=== PATIENT | female | born 1995 | race African-American/Black ===

== ENCOUNTER 2023-08-19 11:19 | Emergency (ER) | payer MEDICAID, OTHER ==
[~2023-08-19] VITALS: Ht 172.7 cm; Wt 148.0 kg
[~2023-08-19 11:19] MED LIST: ALBUTEROL INHALER
[2023-08-19 11:28] VITALS: BP 149/93; PULSE 85; RESP 12; TEMP 98.2; O2SAT 100
[2023-08-19] MEDS ORDERED: AMOX-494 MT (12:13)
[2023-08-19] MEDS ORDERED: P20 MT (12:13)
== END 2023-08-19 12:30 | disposition home or self-care (01) ==
LOC: ER 11:19
DX: J02.0 Streptococcal pharyngitis (principal)
CPT/HCPCS: 99283

== ENCOUNTER 2023-11-03 08:35 | Emergency (ER) | payer OTHER ==
[~2023-11-03] VITALS: Ht 170.2 cm; Wt 145.0 kg
[~2023-11-03 08:35] MED LIST changes: +AMOX-494 MT; +P20 MT
[2023-11-03 08:41] VITALS: O2SAT 100
[2023-11-03] MEDS: KETOROLAC 30MG/ML VIAL IM ONE (09:13)
[2023-11-03] MEDS: DEXAMETHASONE 10 MG/ML VIAL PO ONE (09:13)
[2023-11-03] MEDS ORDERED: IBUP-2029 MT (09:34)
[2023-11-03] MEDS ORDERED: BENZ1LOZ73 MT (09:34)
[2023-11-03 09:42] VITALS: BP 125/86; PULSE 88; RESP 18; TEMP 37.05852; O2SAT 100
== END 2023-11-03 09:44 | disposition home or self-care (01) ==
LOC: ER 08:35
DX: J35.01 Chronic tonsillitis (principal)
CPT/HCPCS: 99283; 96372; J1100; J1885